=== PATIENT | female | born 1945 | race Caucasian/White ===

== ENCOUNTER 2021-07-27 12:08 | Outpatient (CLI) | payer MEDICARE | END 2021-07-27 12:09 | disposition home or self-care (01) | LOC: CSHULT 12:08 | PROVIDERS: ATTEND Urology | DX: N39.41 Urge incontinence (principal); Z87.440 Personal history of urinary (tract) infections; N30.40 Irradiation cystitis without hematuria; N28.9 Disorder of kidney and ureter, unspecified | CPT/HCPCS: 36415; 76770; 80048 ==

== ENCOUNTER 2022-08-05 12:54 | Outpatient (CLI) | payer MEDICARE | END 2022-08-05 12:55 | disposition home or self-care (01) | LOC: CSHULT 12:54 | PROVIDERS: ATTEND Urology | DX: N39.41 Urge incontinence (principal); N28.9 Disorder of kidney and ureter, unspecified | CPT/HCPCS: 76770 ==